=== PATIENT | female | born 1955 | race Caucasian/White ===

== ENCOUNTER → 2016-09-21 | Outpatient (CLI) | payer BC ==
[~2016-09-21] MED LIST: PRVHFAIN INH
--- NOTE | 2016-09-21 16:28 | DIAGNOSTIC IMAGING REPORT ---
ULTRASOUND LEFT LOWER EXTREMITY VENOUS CLINICAL HISTORY: Left leg pain and swelling. COMPARISON STUDY: No priors. TECHNIQUE: Real-time, grayscale, and color Doppler sonography of the deep veins of the left lower extremity was performed from the inguinal crease to the calf. Compression and augmentation were utilized. FINDINGS: There is no sonographic evidence of deep venous thrombosis identified in the left lower extremity. The common femoral, superficial femoral, and popliteal veins are patent and normally compressible. The greater saphenous vein and the profunda femoris vein at the junction with the common femoral vein are clear. The visualized calf veins are patent. IMPRESSION: There is no sonographic evidence of deep venous thrombosis identified in the left lower extremity. Electronically signed by: Shar Stanley M.D. 09/21/2016 4:26 PM Dictated Date/Time: 09/21/2016 4:26 PM
== END | disposition home or self-care (01) ==
LOC: C.ULTR 15:57
PROVIDERS: ATTEND Nurse Practitioner
DX: R60.9 Edema, unspecified (principal); M79.662 Pain in left lower leg

== ENCOUNTER → 2016-12-28 | Outpatient (CLI) | payer BC ==
--- NOTE | 2016-12-28 18:04 | DIAGNOSTIC IMAGING REPORT ---
SACRUM COCCYX MIN 2 VIEWS CLINICAL HISTORY: FALL THIS AM COMPARISON STUDY: CT of the abdomen and pelvis January 19, 2016. FINDINGS: The sacroiliac joints are intact. There is a transitional vertebra at the lumbosacral junction. No acute fracture of the sacrum or coccyx is identified on this exam. IMPRESSION: No acute sacral or coccygeal fracture identified. Electronically signed by: Rudolph Newton M.D. 12/28/2016 6:02 PM Dictated Date/Time: 12/28/2016 6:01 PM
== END | disposition home or self-care (01) ==
LOC: C.RAD 17:04
PROVIDERS: ATTEND Chiropractor
DX: M53.3 Sacrococcygeal disorders, not elsewhere classified (principal)

== ENCOUNTER 2019-06-12 08:04 | Observation (INO) ==
[2019-06-12] MEDS ORDERED: SODIUM CHLORIDE 0.9% 1000ML 1,000 ML IV ONE (08:24)
[2019-06-12] MEDS ORDERED: ONDANSETRON INJ 2 MG/ML 2 ML VIAL IV STA (08:24)
[2019-06-12] MEDS ORDERED: MoRPHine SULFATE 4 MG/ML 1 ML CARP\\VIAL IV STA (08:24)
[2019-06-12 08:45] LABS: Basophils # (auto) 0.03 K/uL (0-0.2); Basophils % (auto) 0.6 %; Eosinophils # (auto) 0.14 K/uL (0-0.5); Hematocrit (blood only) 37.2 % (37-47); Hemoglobin 12.1 g/dL (12.0-16.0); Immature Granulocytes # (auto) 0.01 K/uL (0.00-0.02); Immature Granulocytes % (auto) 0.2 %; Lymphocytes # (auto) 1.05 K/uL (1.2-3.4); Lymphocytes % (auto) 22.7 %; Mean Corpuscular Hemoglobin 31.9 pg (25-34); Mean Corpuscular Hgb Conc 32.5 g/dL (32-36); Mean Corpuscular Volume 98.2 fL (80-100); Mean Platelet Volume 8.7 fL (7.4-10.4); Monocytes # (auto) 0.39 K/uL (0.11-0.59); Monocytes % (auto) 8.4 %; Neutrophils % (auto) 65.1 %; Platelet Count 282 K/uL (130-400); RDW Coefficient of Variation 12.6 % (11.5-14.5); RDW Standard Deviation 44.8 fL (36.4-46.3); Red Blood Count 3.79 M/uL (4.2-5.4); White Blood Count 4.62 K/uL (4.8-10.8)
--- NOTE | 2019-06-12 08:59 | XRay Report ---
XR chest 1V portable CLINICAL HISTORY: 64 years-old Female presenting with chest pain. TECHNIQUE: Portable upright AP view of the chest was obtained. COMPARISON: 04/07/2018. FINDINGS: Atherosclerosis of the aortic arch. Cardiac silhouette enlarged. Mild cephalization of vasculature. M inimal left basilar opacity. No large effusion or pneumothorax. Osseous structures normal. Upper abdo men normal. IMPRESSION: 1. Minimal left basilar atelectasis may be present. 2. Cardiomegaly with mild volume overload. No advanced congestive change. ACT 112: Negative or not required by law. Electronically signed by: Yonis Lopez M.D. 06/12/2019 8:58 AM
[2019-06-12 09:03] LABS: Alanine Aminotransferase 18 U/L (12-78); Albumin Level 3.4 gm/dl (3.4-5.0); Aspartate Aminotransferase 13 U/L (15-37); BUN Creatinine Ratio 15.5 (10-20); Blood Urea Nitrogen 14 mg/dl (7-18); Calcium 9.1 mg/dl (8.5-10.1); Carbon Dioxide 28 mmol/L (21-32); Chloride 107 mmol/L (98-107); Est GFR (African American) 79.4; Est GFR (Non-African American) 68.5; Glucose 94 mg/dl (70-99); Lipase 94 U/L (73-393); Magnesium 2.1 mg/dl (1.8-2.4); Potassium 3.7 mmol/L (3.5-5.1); Sodium 141 mmol/L (136-145)
[2019-06-12 09:05] LABS: iSTAT Creatinine 0.8 mg/dl (0.6-1.3); iSTAT Hemoglobin 11.2 g/dl (12.0-16.0); iSTAT Ionized Calcium 1.18 mmol/l (1.12-1.32); iSTAT Potassium 3.6 mEq/L (3.3-5.0)
[2019-06-12 09:08] LABS: Alkaline Phosphatase 107 U/L (45-117); Bilirubin,Total 1.4 mg/dl (0.2-1); Globulin 3.4 gm/dl (2.5-4.0); Total Protein 6.8 gm/dl (6.4-8.2); Troponin I < 0.015 ng/ml (0-0.045)
[2019-06-12 09:14] LABS: D Dimer 260 ug/L FEU (0-500); Partial Thromboplastin Ratio 1.1; Partial Thromboplastin Time 28.7 Seconds (21.0-31.0); Prothrombin Time 10.2 Seconds (9.0-12.0)
--- NOTE | 2019-06-12 09:55 | Emergency Department Note ---
History of Present Illness General Chief Complaint: Cardiac Assessment Stated Complaint: SEVERE CHEST PAIN HX HEART PROBLEMS Time Seen by Provider: 06/12/19 08:14 Source: patient Mode of arrival: ambulatory Limitations: no limitations History of Present Illness Provider Complaint: chest pain Onset (ago): day(s) 1 Duration: intermittent and progressively worsening Onset: awoke with symptoms Pain Location: substernal and epigastric Pain Radiation: back and abdomen Severity: severe Maximum Pain Intensity: 8 Current Pain Intensity: 8 Quality: + tightness and + aching Relieved By: + nothing Exacerbated By: + exertion, + inspiration, + supine, + palpation and + movement Context: + trauma/injury (fall 5 weeks ago); no history of DVT/PE Associated symptoms: + nausea and + dyspnea Treatments prior to arrival: none This 64-year-old female patient presents emergency department today, ambulatory, accompanied by a friend. The patient is complaining of chest pain under her breasts radiating from the right to the left, down into the abdomen, and to the low back which she describes as a tightness which began this morning upon awakening. She does states she has had intermittent pain similar nature for the past 1 to 2 days. She wears a CPAP overnight, and states when she awoke this morning, she noticed the pain. She does report some dyspnea associated with the pain. She reports similar pain in the past requiring hospitalization but without a diagnosis. She denies any history of heart disease, [place], or need for cardiac cath. The patient denies any recent illness or fever. She denies any cough or hemoptysis. There has been no recent travel. She did fall approximately 5 weeks ago and states she had a chest x-ray done at that time which was negative. The patient has taken no medications for her symptoms. She did drink some tea this morning, but did not eat breakfast. She states movement and palpation worsen the pain. There was no diaphoresis. The patient does report a family history of heart disease in her father, but is uncertain of any specifics. 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 She otherwise denies any chronic medical problems. Related Data On Oral Contraceptives: No Home Medications Home Medications Medication Instructions Recorded Confirmed Type ascorbic acid (vitamin C) [Vitamin 250 mg PO QAM 05/25/19 06/12/19 History C] furosemide [Lasix] 20 mg PO QAM PRN 12/21/19 01/08/20 History goldenseal 325 mg PO BID PRN 05/25/19 06/12/19 History Allergies Allergy/AdvReac Type Severity Reaction Status Date / Time No Known Allergies Allergy Unverified 06/12/19 08:35 Past Med/Surg History Medical History Bradycardia (Acute) H/O unilateral nephrectomy Family History Other No pertinent family history in first degree relatives Social History Preferred Language: Chadian Communication Ability: Effective Academic Support Coordinator Required: No Beliefs That Will Affect Care: None Current Living Situation: Alone Feels Safe at Home: Yes Smoking Status: Never smoker Second Hand Exposure: No ; Hx Alcohol Use: No Hx Substance Use: No Review of Systems A total of 10 systems reviewed and were otherwise negative Physical Exam Vital Signs Vital Signs - 24 hr 06/12/19 08:09 06/12/19 08:18 06/12/19 09:04 Temperature 36.5 C Temperature Source Oral Pulse Rate 66 Pulse Rate [Apical] 64 Respiratory Rate 20 16 Respiratory Effort / Characteristics Non-Labored Respiratory Depth Normal Blood Pressure 148/80 H Blood Pressure [Left Arm] 121/66 Blood Pressure Mean 102 Blood Pressure Mean [Left Arm] 84 Pulse Oximetry 100 100 Oxygen Delivery Method Room Air Room Air Room Air Sepsis Recent Fever Within 48 Hours No Sepsis New/Unexplained Change in Mental Status No Sepsis Action Taken by Nursing No Action Required 06/12/19 09:22 06/12/19 10:40 Temperature Temperature Source Pulse Rate Pulse Rate [Apical] 63 Respiratory Rate 16 Respiratory Effort / Characteristics Respiratory Depth Blood Pressure Blood Pressure [Left Arm] 141/63 H Blood Pressure Mean Blood Pressure Mean [Left Arm] 89 Pulse Oximetry 100 100 Oxygen Delivery Method Room Air Room Air Sepsis Recent Fever Within 48 Hours Sepsis New/Unexplained Change in Mental Status Sepsis Action Taken by Nursing VITALS: Vitals are noted on the nurse's note and reviewed by myself. Vital signs stable. GENERAL: This is a 64-year-old white female, in no acute distress, nondiaphoretic, well-developed well-nourished. SKIN: The skin was without rashes, erythema, edema, or bruising. There is no tenting of the skin. Capillary refill less than 2 seconds. HEAD: Normocephalic atraumatic. EARS: External auditory canals clear, tympanic membranes pearly onofre without erythema or effusion bilaterally. EYES: Pupils equal round and reactive to light and accommodation. Conjunctivae without injection, sclerae without icterus. NOSE: Patent, turbinates without inflammation or discharge. No sinus tenderness. MOUTH: Mucous membranes moist. Tonsils are not enlarged. Pharynx without erythema or exudate. Uvula midline. Airway patent. Tongue does not deviate. NECK: Supple without nuchal rigidity. No lymphadenopathy. No thyromegaly. Cervical spine is nontender. No JVD. CHEST: Significant reproducible chest wall tenderness anteriorly. This is diffusely across the chest wall. This does radiate to the epigastrium. HEART: Regular rate and rhythm without murmurs gallops or rubs. LUNGS: Clear to auscultation bilaterally without wheezes, rales or rhonchi. No retractions or accessory muscle use. ABDOMEN: Positive bowel sounds x 4. Normal tympanic percussion. Epigastric and right upper quadrant tenderness to palpation. Abdomen is otherwise soft, nontender, without masses or organomegaly. Lai sign negative. No guarding or rebound tenderness. MUSCULOSKELETAL: No muscle atrophy, erythema, or edema noted. Full range of motion without joint tenderness in all extremities. No tenderness to palpation. Normal gait. Strength 5/5 throughout. NEURO: Patient was alert and oriented to person place and time. No focal neurological deficits. Course The patient was seen and evaluated as above. IV access obtained, labs drawn. Pt. medicated with IV NSS, 4mg IV morphine and 4mg IV Zofran. Imaging performed and reviewed by myself and radiologist as above. Labs reviewed by myself. I discussed the findings with the patient at bedside. I discussed the likely need for a HIDA scan and possible surgery. Recommended admission. Pt. was agreeable. I discussed the case with Dr. Thomas. She did agree to see and evaluate the patient for admission. Please see her dictation regarding ongoing management and care of this patient. Administered Medications Discontinued Medications Sodium Chloride (Nss 1000ml) 1,000 mls @ 999 mls/hr IV .Q1H1M ONE Stop: 06/12/19 09:24 Last Infusion: 06/12/19 09:47 Dose: 0 mls/hr Documented by: [id number] Admin: 06/12/19 08:40 Dose: 999 mls/hr Documented by: [id number] Morphine Sulfate (Morphine Sulfate) 4 mg IV NOW STA Stop: 06/12/19 08:25 Last Admin: 06/12/19 08:39 Dose: 4 mg Documented by: [id number] Ondansetron HCl (Zofran) 4 mg IV NOW STA Stop: 06/12/19 08:25 Last Admin: 06/12/19 08:39 Dose: 4 mg Documented by: [id number] Medical Decision Making Differential Diagnosis + fracture of rib, + pneumothorax, + stable angina, + unstable angina pectoris, + atypical chest pain, + st elevation myocardial infarction, + costochondritis, + chest pain, + biliary colic, + cardiac ischemia, + myocarditis, + pericarditis, + costochondritis, + pleurisy, + aortic dissection, + pulmonary embolism, + pneumonia, + musculoskeletal, + infections, + cholecystitis, + pancreatitis and + esophageal rupture Home Medications Current Medication List: was personally reviewed by me Laboratory Data Attestation: I reviewed the patient's lab results. No leukocytosis, anemia, thrombocytopenia. Renal, hepatic function, and electrolytes without significant abnormality. Coags normal. D-dimer 260. T bili elevated at 1.4. Troponin negative. Lipase 94. Result diagrams: 06/12/19 08:31 06/12/19 08:31 Lab Results 06/12/19 06/12/19 06/12/19 Range/Units 08:31 08:31 08:31 WBC 4.62 L (4.8-10.8) K/uL RBC 3.79 L (4.2-5.4) M/uL Hgb 12.1 (12.0-16.0) g/dL POC Hgb (12.0-16.0) g/dl Hct 37.2 (37-47) % POC Hct (37-47) % MCV 98.2 (80-100) fL MCH 31.9 (25-34) pg MCHC 32.5 (32-36) g/dL RDW Std Deviation 44.8 (36.4-46.3) fL RDW Coeff of Mariusz 12.6 (11.5-14.5) % Plt Count 282 (130-400) K/uL MPV 8.7 (7.4-10.4) fL Immature Gran % (Auto) 0.2 % Neut % (Auto) 65.1 % Lymph % (Auto) 22.7 % [place] % (Auto) 8.4 % Eos % (Auto) 3.0 % Baso % (Auto) 0.6 % Immature Gran # (Auto) 0.01 (0.00-0.02) K/uL Neut # (Auto) 3.00 (1.4-6.5) K/uL Lymph # (Auto) 1.05 L (1.2-3.4) K/uL [place] # (Auto) 0.39 (0.11-0.59) K/uL Eos # (Auto) 0.14 (0-0.5) K/uL Baso # (Auto) 0.03 (0-0.2) K/uL PT 10.2 (9.0-12.0) Seconds INR 1.0 (0.9-1.1) APTT 28.7 (21.0-31.0) Seconds PTT Ratio 1.1 D-Dimer 260 (0-500) ug/L FEU POC Sodium (135-144) mEq/L Sodium 141 (136-145) mmol/L POC Potassium (3.3-5.0) mEq/L Potassium 3.7 (3.5-5.1) mmol/L POC Chloride (101-112) mEq/L Chloride 107 (98-107) mmol/L Carbon Dioxide 28 (21-32) mmol/L POC Total CO2 (24-31) mEq/l Anion Gap 6.0 (3-11) POC Anion Gap (16-25) mmol/L POC BUN (7-18) mg/dl BUN 14 (7-18) mg/dl Creatinine 0.89 (0.6-1.2) mg/dl POC Creatinine (0.6-1.3) mg/dl Est Cr Clr Drug Dosing Not Reportable Est GFR ( Amer) 79.4 Est GFR (Non-Af Amer) 68.5 BUN/Creatinine Ratio 15.5 (10-20) Glucose 94 (70-99) mg/dl POC Glucose (other) (70-99) mg/dl Calcium 9.1 (8.5-10.1) mg/dl POC Ioniz Calcium Venkata (1.12-1.32) mmol/l Magnesium 2.1 (1.8-2.4) mg/dl Total Bilirubin 1.4 H (0.2-1) mg/dl AST 13 L (15-37) U/L ALT 18 (12-78) U/L Alkaline Phosphatase 107 (45-117) U/L Troponin I < 0.015 (0-0.045) ng/ml Total Protein 6.8 (6.4-8.2) gm/dl Albumin 3.4 (3.4-5.0) gm/dl Globulin 3.4 (2.5-4.0) gm/dl Albumin/Globulin Ratio 1.0 (0.9-2) Lipase 94 (73-393) U/L 06/12/19 Range/Units 08:52 WBC (4.8-10.8) K/uL RBC (4.2-5.4) M/uL Hgb (12.0-16.0) g/dL POC Hgb 11.2 L (12.0-16.0) g/dl Hct (37-47) % POC Hct 33 L (37-47) % MCV (80-100) fL MCH (25-34) pg MCHC (32-36) g/dL RDW Std Deviation (36.4-46.3) fL RDW Coeff of Mariusz (11.5-14.5) % Plt Count (130-400) K/uL MPV (7.4-10.4) fL Immature Gran % (Auto) % Neut % (Auto) % Lymph % (Auto) % [place] % (Auto) % Eos % (Auto) % Baso % (Auto) % Immature Gran # (Auto) (0.00-0.02) K/uL Neut # (Auto) (1.4-6.5) K/uL Lymph # (Auto) (1.2-3.4) K/uL [place] # (Auto) (0.11-0.59) K/uL Eos # (Auto) (0-0.5) K/uL Baso # (Auto) (0-0.2) K/uL PT (9.0-12.0) Seconds INR (0.9-1.1) APTT (21.0-31.0) Seconds PTT Ratio D-Dimer (0-500) ug/L FEU POC Sodium 140 (135-144) mEq/L Sodium (136-145) mmol/L POC Potassium 3.6 (3.3-5.0) mEq/L Potassium (3.5-5.1) mmol/L POC Chloride 103 (101-112) mEq/L Chloride (98-107) mmol/L Carbon Dioxide (21-32) mmol/L POC Total CO2 26 (24-31) mEq/l Anion Gap (3-11) POC Anion Gap 15.0 L (16-25) mmol/L POC BUN 14 (7-18) mg/dl BUN (7-18) mg/dl Creatinine (0.6-1.2) mg/dl POC Creatinine 0.8 (0.6-1.3) mg/dl Est Cr Clr Drug Dosing Est GFR ( Amer) Est GFR (Non-Af Amer) BUN/Creatinine Ratio (10-20) Glucose (70-99) mg/dl POC Glucose (other) 97 (70-99) mg/dl Calcium (8.5-10.1) mg/dl POC Ioniz Calcium Venkata 1.18 (1.12-1.32) mmol/l Magnesium (1.8-2.4) mg/dl Total Bilirubin (0.2-1) mg/dl AST (15-37) U/L ALT (12-78) U/L Alkaline Phosphatase (45-117) U/L Troponin I (0-0.045) ng/ml Total Protein (6.4-8.2) gm/dl Albumin (3.4-5.0) gm/dl Globulin (2.5-4.0) gm/dl Albumin/Globulin Ratio (0.9-2) Lipase (73-393) U/L Imaging Data Chest x-ray: Radiologist's impression: XR chest 1V portable CLINICAL HISTORY: 64 years-old Female presenting with chest pain. TECHNIQUE: Portable upright AP view of the chest was obtained. COMPARISON: 04/07/2018. FINDINGS: Atherosclerosis of the aortic arch. Cardiac silhouette enlarged. Mild cep halization of vasculature. Minimal left basilar opacity. No large effusion or pneumothorax. Osseous structures normal. Upper abdomen normal. IMPRESSION: 1. Minimal left basilar atelectasis may be present. 2. Cardiomegaly with mild volume overload. No advanced congestive change. ACT 112: Negative or not required by law. Electronically signed by: Yonis Lopez M.D. 06/12/2019 8:58 AM US - abdomen: Radiologist's impression: US abdomen limited CLINICAL HISTORY: 64 years-old Female presenting with RUQ, epigastric pain. TECHNIQUE: Real-time grayscale and limited color Doppler ultrasound imaging of the abdomen limited to the right upper quadrant was performed. COMPARISON: 10/23/[address] from 01/19/2016. FINDINGS: Pancreas: Visualized portions of the pancreatic head and body normal. Liver: Normal echogenicity and echotexture. The liver measures 15.0 cm in maximal sagittal dimension. No sonographic evidence of hepatic mass. Main portal vein patent with normal directional flow. Biliary: No intrahepatic biliary ductal dilatation. Common bile duct measures up to 3 mm in diameter. Gallbladder: Gallstones with mild gallbladder distention. No significant wall thickening, or pericholecystic fluid or inflammatory change. Sonographic Lai's sign positive. Right kidney: Mild pelvocaliectasis. This is chronic and consistent with a flaccid renal collecting system. Ascites: None. Other: None. IMPRESSION: 1. Cholelithiasis with findings raising concern for cholecystitis. HIDA is recommended for further characterization if deemed clinically warranted. 2. No biliary ductal dilatation to suggest choledocholithiasis. ACT 112: Negative or not required by law. Electronically signed by: Yonis Lopez M.D. 06/12/2019 9:52 AM ECG Data Attestation: I personally reviewed and interpreted this ECG as follows: Indication: chest pain Rate (beats per minute): 70 Rhythm: normal sinus Findings: no ST depression, no T-wave inversion, no ST elevation, no acute ischemic change and no ectopy Comparison ECG Date: from (04/2018) Change: no significant change Blood Pressure Blood Pressure Findings: Elevated blood pressure Blood Pressure Disposition: elevated BP felt to be situational MDM Narrative This 64-year-old female patient presents emergency department today, ambulatory, due to severe epigastric and chest pain which began this morning, but has been intermittent for the past few days. The patient is very tender in the epigastrium and right upper quadrant. No evidence of acute coronary syndrome on EKG or laboratory evaluation. The patient's labs show a mildly elevated T bili, but no significant LFT abnormalities or leukocytosis. Imaging was concerning for cholelithiasis with possible cholecystitis. Radiologist recommended a HIDA scan. The patient will be admitted to the hospitalist service for further evaluation and possible surgical evaluation for cholecystectomy. Please see hospitalist dictation regarding ongoing management care of this patient. The chart was completed utilizing [employer] Speech voice recognition software. Grammatical errors, random word insertions, pronoun errors, and incomplete sentences are an occasional consequence of this system due to software limitations, ambient noise, and hardware issues. Any formal questions or concer ns about the content, text, or information contained within the body of this dictation should be directly addressed to the provider for clarification. Impression & Plan Atypical chest pain, Biliary colic, Cholelithiasis Discharge Plan Visit Data *Final* Discharge Date/Time: 06/12/19 13:21 Chief Complaint: Cardiac Assessment Stated Complaint: SEVERE CHEST PAIN HX HEART PROBLEMS ED Provider: Gamal Mcguire ED Midlevel Provider: Yomaira Logan Discharge Problem: Atypical chest pain, Biliary colic, Cholelithiasis Patient Disposition: Admitted As Inpatient Discharge Instructions Interventions: ED Discharge Assessment Last Done: 06/12/19 13:21
--- NOTE | 2019-06-12 10:19 | Electrocardiogram Report ---
Test Reason : Blood Pressure : / mmHG Vent. Rate : 070 BPM Atrial Rate : 070 BPM P-R Int : 176 ms QRS Dur : 092 ms QT Int : 400 ms P-R-T Axes : 057 -06 027 degrees QTc Int : 432 ms Normal sinus rhythm Low voltage QRS Poor R wave progression, consider anterior DC vs. lead placement vs. LVH Abnormal ECG When compared with ECG of 07-APR-2018 12:13, No significant change was found Confirmed by Jayson Mac ([id number]) on 06/12/2019 10:19:30 AM Referred By: REFERRED SELF Confirmed By:Jayson Mac
--- NOTE | 2019-06-12 11:03 | History & Physical Report ---
Date of Service June 12, 2019 Assessment & Plan (1) Biliary colic: Admit to [facility] on telemetry for observation Vital signs every 4 hours HIDA scan pending N.p.o. for HIDA scan Hold all pain medication before HIDA scan Consider consulting general surgery or GI depending on HIDA scan result Follow-up CMP liver enzymes and lipase DVT prophylaxis SCDs and teds, patient is ambulatory. Ambulation 3 times a day Full code (2) Atypical chest pain: Patient complaining of epigastric pain radiating to her left and right chest First troponin is negative EKG normal sinus rhythm We will continue ruling out acute coronary syndrome with repeating 2 more troponins Present on Admission?: Yes (3) H/O unilateral nephrectomy: Patient had left unilateral nephrectomy when she was a 6 grader due to sliding accident and injury. No issues at this time. Present on Admission?: Yes (4) History of kidney stones: Patient reports having kidney stones in the past. Urine analysis is pending. Present on Admission?: Yes History of Present Illness Chief Complaint: Patient is a 64 years old female with past medical history of unilateral left nephrectomy that was a result of sliding injury when she was a 6 grade, history of kidney stones and otherwise healthy, who presents to the emergency room brought by her friend complaining of a atypical chest pain located in the epigastric area and radiating to her left and right upper abdomen, which she describes as a tightness that started this morning upon awakening. Patient states that she had intermittent pain 2 days ago. Patient wears CPAP overnight for sleep apnea. Patient denies fever, chills, shortness of breath frequency urgency syncope or near syncope. Labs are reviewed which shows: WBC is 4.62, hemoglobin 12.1, hematocrit 37.2, platelets 282, PT 10.2, INR 1, APTT 28.7 d-dimer is 260, sodium 141, potassium 3.7, chloride 107, anion gap 6, BUN 14, creatinine 0.89, GFR 68.5, calcium 9.1, magnesium 2.1, total bili 1.4, AST 13, ALT 18, alkaline phosphatase 107, troponin 0 0.015, lipase 94. Chest x-ray shows minimal left basilar atelectasis, cardiomegaly with mild volume overload. No advanced congestive changes. Abdominal ultrasound shows cholelithiasis with findings raising concerns of cholecystitis. HIDA is recommended for further characterization. No biliary ductal dilatation to suggest cholelithiasis. Decision was made to admit patient to telemetry on observation. Primary Care Provider: Rea Rain DO Allergies Allergy/AdvReac Type Severity Reaction Status Date / Time No Known Allergies Allergy Unverified 06/12/19 08:35 Home Medications Home Medications Medication Instructions Recorded Confirmed Type ascorbic acid (vitamin C) [Vitamin 250 mg PO QAM 05/25/19 06/12/19 History C] furosemide [Lasix] 20 mg PO QAM PRN 05/25/19 06/12/19 History goldenseal 325 mg PO BID PRN 05/25/19 06/12/19 History Past Med/Surg History Medical History Bradycardia (Acute) H/O unilateral nephrectomy Family History Other No pertinent family history in first degree relatives Social History Preferred Language: Setswana Communication Ability: Effective 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 Beliefs That Will Affect Care: None Current Living Situation: Alone Other Information That Helps Us Care for You: No Feels Safe at Home: Yes Safety Concerns: Feels Safe At This Time Smoking Status: Never smoker Do You Dip or Chew Tobacco: No ; Second Hand Exposure: No ; Tobacco Cessation Education Requested by Patient: No Hx Alcohol Use: No Hx Substance Use: No Review of Systems Review of Systems: All systems reviewed & are unremarkable except as noted in HPI & below Physical Exam Constitutional: WD/WN, vitals as above well developed Eyes: PERRL, conjunctivae normal, anicteric sclerae ENMT: external ear and nose normal, oropharynx normal Neck: trachea midline, no thyromegaly Respiratory: normal respiratory effort, lungs clear to auscultation Cardiovascular: RRR, no murmur, no edema Gastrointestinal (Abdomen): Epigastric and right upper quadrant tenderness Musculoskeletal: no cyanosis or clubbing, extremities motor strength 5/5 Skin: no rashes, warm and dry Neurologic: patellar DTR's 2+ bilat, sensation intact Psychiatric: A+Ox3, euthymic affect Lymphatic: no cervical or axillary lymphadenopathy Results & Data Vital Signs (Past 12 Hours) Vital Signs Temp Pulse Pulse Resp BP BP Pulse Ox 06/12/19 10:40 63 16 141/63 H 100 06/12/19 09:22 100 06/12/19 09:04 64 16 121/66 100 06/12/19 08:09 36.5 C 66 20 148/80 H 100 Code Status & VTE Plan Code Status Full code VTE Prophylaxis Plan VTE Prophylaxis will be ordered: Yes PG Care Time/CCT Total # of Minutes Spent Total Time Spent with Patient: Total time spent is greater than 50% in coordination of care (as documented) at patient's floor/unit and/or counseling patient:
[2019-06-12] MEDS ORDERED: FUROSEMIDE 20 MG TAB PO PRN (14:14)
[2019-06-12] MEDS ORDERED: MAGNESIUM HYDROXIDE SUSP 30 ML UDC PO PRN (14:14)
[2019-06-12] MEDS ORDERED: ONDANSETRON INJ 2 MG/ML 2 ML VIAL IV PRN (14:14)
[2019-06-12] MEDS ORDERED: GOLDENSEAL PO PRN (14:14)
[2019-06-12] MEDS ORDERED: ALUMINUM/MAGNESIUM SUSP 30 ML UDC PO PRN (14:14)
[2019-06-12] MEDS ORDERED: ACETAMINOPHEN 325 MG TAB PO PRN (14:14)
[2019-06-12 14:53] LABS: Estimated Average Glucose 105 mg/dl; Hemoglobin A1C 5.3 % (4.5-5.6)
[2019-06-12] MEDS: NSS + 20MEQ KCL 20 MEQ/1,000 ML BAG IV SCH (15:55)
[2019-06-13] MEDS: NSS + 20MEQ KCL 20 MEQ/1,000 ML BAG IV SCH ×2 (01:25→13:55)
[2019-06-13 07:47] LABS: Basophils # (auto) 0.01 K/uL (0-0.2); Basophils % (auto) 0.2 %; Eosinophils # (auto) 0.12 K/uL (0-0.5); Eosinophils % (auto) 2.6 %; Hematocrit (blood only) 35.3 % (37-47); Hemoglobin 11.4 g/dL (12.0-16.0); Immature Granulocytes # (auto) 0.01 K/uL (0.00-0.02); Immature Granulocytes % (auto) 0.2 %; Lymphocytes # (auto) 1.23 K/uL (1.2-3.4); Lymphocytes % (auto) 26.3 %; Mean Corpuscular Hgb Conc 32.3 g/dL (32-36); Mean Corpuscular Volume 99.2 fL (80-100); Mean Platelet Volume 8.8 fL (7.4-10.4); Monocytes # (auto) 0.36 K/uL (0.11-0.59); Monocytes % (auto) 7.7 %; Neutrophils # (auto) 2.94 K/uL (1.4-6.5); Platelet Count 282 K/uL (130-400); RDW Coefficient of Variation 12.6 % (11.5-14.5); RDW Standard Deviation 45.9 fL (36.4-46.3); Red Blood Count 3.56 M/uL (4.2-5.4); White Blood Count 4.67 K/uL (4.8-10.8)
[2019-06-13 08:18] LABS: Albumin Level 3.1 gm/dl (3.4-5.0); BUN Creatinine Ratio 12.8 (10-20); Calcium 8.7 mg/dl (8.5-10.1); Creatinine Clr Calc Pharmacy 73.7 ml/min; Est GFR (African American) 82.7; Est GFR (Non-African American) 71.4; Potassium 3.9 mmol/L (3.5-5.1)
[2019-06-13 08:25] LABS: Bilirubin,Total 1.9 mg/dl (0.2-1); Globulin 3.1 gm/dl (2.5-4.0); Total Protein 6.2 gm/dl (6.4-8.2)
[2019-06-13] MEDS ORDERED: SINCALIDE 1.8 MCG in 0.9 % SODIUM CHLORIDE 100 ML IV SCH (09:00)
[2019-06-13] MEDS ORDERED: ASCORBIC ACID 500 MG TAB PO SCH (09:00)
--- NOTE | 2019-06-13 10:19 | Nuclear Medicine Report ---
NM hepatobiliary EF CLINICAL HISTORY: acute cholecystitis COMPARISON STUDY: Ultrasound study dated 06/12/2015 FINDINGS: The patient was injected with 5.3 mCi of technetium 99 M Choletec. Sequential anterior imag ing was performed. Hepatic excretion appeared unremarkable. There is normal passage of activity into small bowel. The gallbladder was first visualized on the 10 minute image. At 1 hour, the patient was injected with 3.8 mcg of sincalide utilizing a 30 minute infusion. The gallbladder ejection fraction was diminished calculated to measure 12%. IMPRESSION: 1. No evidence of cystic duct obstruction 2. Diminished gallbladder ejection fraction of 12% ACT 112: Negative or not required by law. Electronically signed by: Gareth Alvarado M.D. 06/13/2019 10:17 AM
[2019-06-13] MEDS ORDERED: LIDOCAINE 5% 1 PATCH TD SCH (12:00)
[2019-06-13] MEDS ORDERED: ACETAMINOPHEN SOLN 500 MG/15.62 ML UDP PO SCH (12:00)
--- NOTE | 2019-06-13 13:26 | Gastrointestinal Consultation ---
Date of Consultation June 13, 2019 Assessment & Plan (1) Cholelithiasis: (2) Biliary colic: symptomatic with cholelithiasis, EF reduced on HIDA scan recs: --would benefit from CCY (biliary colic with cholelithiasis), defer to surgery at this time --supportive care, pain control prn --no evidence of CBD obstruction/choledocholithiasis, ERCP not indicated rest as per primary team Thank you for allowing me to participate in the care of this patient History of Present Illness Attending Physician: Nahid Fernando MD 64 yo female with hx nephrectomy here with epigastric and right upper quadrant pains, described as a tightness that comes and goes for the last few months, associated with nausea, 10/10. GI consulted for biliary colic. LFTs show tbili 1.9, normal ALP. US showed positive murphys and with normal CBD and cholelithiasis was present, HIDA scan showed reduced EF 12%. She denies any diarrhea, constipation, fevers, chills, any other symptoms. lipase wnl. Labs as above. Allergies Allergy/AdvReac Type Severity Reaction Status Date / Time No Known Allergies Allergy Unverified 06/12/19 08:35 Home Medications Home Medications Medication Instructions Recorded Confirmed Type ascorbic acid (vitamin C) [Vitamin 250 mg PO QAM 05/25/19 06/12/19 History C] furosemide [Lasix] 20 mg PO QAM PRN 05/25/19 06/12/19 History goldenseal 325 mg PO BID PRN 05/25/19 06/12/19 History Patient History Medical History Bradycardia (Acute) H/O unilateral nephrectomy Family History Other No pertinent family history in first degree relatives Social History Preferred Language: Syrian Communication Ability: Effective Prosthetics Lab Technician Required: No Beliefs That Will Affect Care: None Current Living Situation: Alone Feels Safe at Home: Yes Smoking Status: Never smoker Second Hand Exposure: No ; Hx Alcohol Use: No Hx Substance Use: No Review of Systems Constitutional: no fever, no chills and no weight loss Eyes: as per Subjective / HPI Ear, Nose, Mouth, Throat: as per Subjective / HPI Respiratory: no dyspnea and no dyspnea on exertion Cardiovascular: no chest pain and no palpitations Gastrointestinal: as per Subjective / HPI Musculoskeletal: no joint pain and no swelling Integumentary: no rash and no lesions Neurologic: no numbness and no paresthesia Psychiatric: no depression and no anxiety Endocrine: no fatigue Hematologic / Lymphatic: no easy bleeding and no easy bruising Physical Exam Constitutional: WD/WN, vitals as above Eyes: EOM intact bilaterally Neck: normal visual inspection Respiratory: normal respiratory effort, lungs clear to auscultation Cardiovascular: RRR, no murmur, no edema Gastrointestinal (Abdomen): Inspection/Auscultation: abdomen normal to inspection; abdomen not distended Percussion/Palpation: abdomen soft; abdomen nontender and no hepatosplenomegaly Musculoskeletal: Extremities: no cyanosis Gait: normal gait Skin: no rashes, warm and dry Neurologic: moves all extremities Psychiatric: A+Ox3, euthymic affect Results & Data Vital Signs (Past 12 Hours) Vital Signs Temp Pulse Pulse Pulse Resp BP BP 06/13/19 11:23 36.7 C 57 L 19 127/81 06/13/19 07:31 36.8 C 57 L 57 L 18 127/60 06/13/19 07:20 72 06/13/19 04:09 36.6 C 67 18 111/62 Pulse Ox 06/13/19 11:23 100 06/13/19 07:31 99 06/13/19 07:20 06/13/19 04:09 93 PG Care Time/CCT Total # of Minutes Spent Total Time Spent with Patient: Total time spent is greater than 50% in coordination of care (as documented) at patient's floor/unit and/or counseling patient: (1) Cholelithiasis Biliary obstruction: without biliary obstruction Cholecystitis acuity: acute Cholecystitis presence: with cholecystitis Cholelithiasis location: gallbladder Qualified Code(s): K80.00 - Calculus of gallbladder with acute cholecystitis without obstruction
[2019-06-13] MEDS ORDERED: ACETAMINOPHEN SOLN 160 MG/5 ML BTL PO SCH (14:30)
--- NOTE | 2019-06-13 15:01 | Surgery Consultation ---
Date of Consultation June 13, 2019 Assessment & Plan (1) Atypical chest pain: This patient has costochondritis with palpation of which leads to recreation of her symptoms. There is cholelithiasis present but it is unlikely that that is what is causing these particular symptoms especially considering there is no wall thickening or pericholecystic fluid by ultrasound and there was prompt filling of the gallbladder on hepatobiliary scan. Musculoskeletal/costochondritis is also supported by the fact that chiropractic manipulation relieves the symptoms prior to this episode. Treating the costochondritis may be somewhat difficult as a result of her inability to take NSAIDs as a result of having only 1 kidney. [place] cystectomy can be discussed as an outpatient and may at some point be necessary but I do not think that performing cholecystectomy at this time will relieve her costochondritis symptoms. History of Present Illness Reason for Consultation: Pain in the sternum region Requesting Physician: Nahid Fernando MD Attending Physician: Nahid Fernando MD History of Present Illness I been asked by Dr. Fernando to see this 64-year-old female who presented to the emergency room with escalating pain. The patient states that for about the last 2 years she has been experiencing discomfort in the sternum region. It always begins there. If the pain escalates it can radiate down along the lower chest wall towards the right side and then into her lower back. This is not associated with nausea or vomiting. She has no fever with it. She cannot predict its onset. She does not think it is related to meals. The most recent episode lasted longer than it had before and was more severe. The patient states that in the past when she would have the pain occur she would go to her chiropractor and he would do an adjustment and the pain would resolve almost immediately. She is never had a history of jaundice hepatitis or pancreatitis. She was unaware that she had gallstones. She underwent a HIDA scan that demonstrated prompt filling of the gallbladder. Allergies Allergy/AdvReac Type Severity Reaction Status Date / Time No Known Allergies Allergy Unverified 06/12/19 08:35 Home Medications Home Medications Medication Instructions Recorded Confirmed Type ascorbic acid (vitamin C) [Vitamin 250 mg PO QAM 05/25/19 06/12/19 History C] furosemide [Lasix] 20 mg PO QAM PRN 05/25/19 06/12/19 History goldenseal 325 mg PO BID PRN 05/25/19 06/12/19 History Patient History Medical History Bradycardia (Acute) Surgical History (Updated 06/13/19 @ 14:59 by David Shane MD) H/O unilateral nephrectomy Left Secondary to trauma Family History Other No pertinent family history in first degree relatives Social History Preferred Language: Japanese Communication Ability: Effective Call Center Professional Required: No Beliefs That Will Affect Care: None Current Living Situation: Alone Feels Safe at Home: Yes Smoking Status: Never smoker Second Hand Exposure: No ; Hx Alcohol Use: No Hx Substance Use: No Physical Exam Constitutional: no acute distress Neck: trachea midline Respiratory: no respiratory distress and no labored breathing Auscultation: + rhonchi (Scattered throughout) Cardiovascular: Rate/Rhythm: regular rate and regular rhythm Chest (Breasts): Additional Comments: Exquisite tenderness along the costal margin and along the costosternal junction extending up towards the left and right sides that re-create her symptoms Results & Data Vital Signs (Past 12 Hours) Vital Signs Temp Pulse Pulse Pulse Resp BP BP 06/13/19 11:23 36.7 C 57 L 19 127/81 06/13/19 07:31 36.8 C 57 L 57 L 18 127/60 06/13/19 07:20 72 06/13/19 04:09 36.6 C 67 18 111/62 Pulse Ox 06/13/19 11:23 100 06/13/19 07:31 99 06/13/19 07:20 06/13/19 04:09 93 Laboratory Results 06/13/19 06/13/19 06/12/19 Range/Units 07:36 07:36 08:41 WBC 4.67 L (4.8-10.8) K/uL RBC 3.56 L (4.2-5.4) M/uL Hgb 11.4 L (12.0-16.0) g/dL Hct 35.3 L (37-47) % MCV 99.2 (80-100) fL MCH 32.0 (25-34) pg MCHC 32.3 (32-36) g/dL RDW Std Deviation 45.9 (36.4-46.3) fL RDW Coeff of Mariusz 12.6 (11.5-14.5) % Plt Count 282 (130-400) K/uL MPV 8.8 (7.4-10.4) fL Immature Gran % (Auto) 0.2 % Neut % (Auto) 63.0 % Lymph % (Auto) 26.3 % [place] % (Auto) 7.7 % Eos % (Auto) 2.6 % Baso % (Auto) 0.2 % Immature Gran # (Auto) 0.01 (0.00-0.02) K/uL Neut # (Auto) 2.94 (1.4-6.5) K/uL Lymph # (Auto) 1.23 (1.2-3.4) K/uL [place] # (Auto) 0.36 (0.11-0.59) K/uL Eos # (Auto) 0.12 (0-0.5) K/uL Baso # (Auto) 0.01 (0-0.2) K/uL Sodium 142 (136-145) mmol/L Potassium 3.9 (3.5-5.1) mmol/L Chloride 111 H (98-107) mmol/L Carbon Dioxide 27 (21-32) mmol/L Anion Gap 4.0 (3-11) BUN 11 (7-18) mg/dl Creatinine 0.86 (0.6-1.2) mg/dl Est Cr Clr Drug Dosing 73.7 ml/min Est GFR ( Amer) 82.7 Est GFR (Non-Af Amer) 71.4 BUN/Creatinine Ratio 12.8 (10-20) Glucose 90 (70-99) mg/dl Calcium 8.7 (8.5-10.1) mg/dl Total Bilirubin 1.9 H (0.2-1) mg/dl AST 8 L (15-37) U/L ALT 17 (12-78) U/L Alkaline Phosphatase 98 (45-117) U/L Total Protein 6.2 L (6.4-8.2) gm/dl Albumin 3.1 L (3.4-5.0) gm/dl Globulin 3.1 (2.5-4.0) gm/dl Albumin/Globulin Ratio 1.0 (0.9-2) Triglycerides 42 (0-150) mg/dl Cholesterol 175 (0-200) mg/dl LDL Cholesterol, Calc 84 mg/dl VLDL Cholesterol, Calc 8 mg/dl HDL Cholesterol 83 mg/dl Cholesterol/HDL Ratio 2 TSH 3.840 (0.300-4.500) uIu/ml Diagnostic Findings US abdomen limited CLINICAL HISTORY: 64 years-old Female presenting with RUQ, epigastric pain. TECHNIQUE: Real-time grayscale and limited color Doppler ultrasound imaging of the abdomen limited to the right upper quadrant was performed. COMPARISON: 10/23/[address] from 01/19/2016. FINDINGS: Pancreas: Visualized portions of the pancreatic head and body normal. Liver: Normal echogenicity and echotexture. The liver measures 15.0 cm in maximal sagittal dimension. No sonographic evidence of hepatic mass. Main portal vein patent with normal directional flow. Biliary: No intrahepatic biliary ductal dilatation. Common bile duct measures up to 3 mm in diameter. Gallbladder: Gallstones with mild gallbladder distention. No significant wall thickening, or pericholecystic fluid or inflammatory change. Sonographic Lai's sign positive. Right kidney: Mild pelvocaliectasis. This is chronic and consistent with a flaccid renal collecting system. Ascites: None. Other: None. IMPRESSION: 1. Cholelithiasis with findings raising concern for cholecystitis. HIDA is recommended for further characterization if deemed clinically warranted. 2. No biliary ductal dilatation to suggest choledocholithiasis. NM hepatobiliary EF CLINICAL HISTORY: acute cholecystitis COMPARISON STUDY: Ultrasound study dated 06/12/2015 FINDINGS: The patient was injected with 5.3 mCi of technetium 99 M Choletec. Sequential anterior imaging was performed. Hepatic excretion appeared unremarkable. There is normal passage of activity into small bowel. The gallbladder was first visualized on the 10 minute image. At 1 hour, the patient was injected with 3.8 mcg of sincalide utilizing a 30 minute infusion. The gallbladder ejection fraction was diminished calculated to measure 12%. IMPRESSION: 1. No evidence of cystic duct obstruction 2. Diminished gallbladder ejection fraction of 12%
--- NOTE | 2019-06-13 15:16 | Discharge Summary ---
Date of Service June 13, 2019 Admission HPI Per Admitting Provider Chief Complaint: Patient is a 64 years old female with past medical history of unilateral left nephrectomy that was a result of sliding injury when she was a 6 grade, history of kidney stones and otherwise healthy, who presents to the emergency room brought by her friend complaining of a atypical chest pain located in the epigastric area and radiating to her left and right upper abdomen, which she describes as a tightness that started this morning upon awakening. Patient states that she had intermittent pain 2 days ago. Patient wears CPAP overnight for sleep apnea. Patient denies fever, chills, shortness of breath frequency urgency syncope or near syncope. Labs are reviewed which shows: WBC is 4.62, hemoglobin 12.1, hematocrit 37.2, platelets 282, PT 10.2, INR 1, APTT 28.7 d-dimer is 260, sodium 141, potassium 3.7, chloride 107, anion gap 6, BUN 14, creatinine 0.89, GFR 68.5, calcium 9.1, magnesium 2.1, total bili 1.4, AST 13, ALT 18, alkaline phosphatase 107, troponin 0 0.015, lipase 94. Chest x-ray shows minimal left basilar atelectasis, cardiomegaly with mild volume overload. No advanced congestive changes. Abdominal ultrasound shows cholelithiasis with findings raising concerns of cholecystitis. HIDA is recommended for further characterization. No biliary ductal dilatation to suggest cholelithiasis. Decision was made to admit patient to telemetry on observation. Primary Care Provider: Rea Rain DO Principal Diagnosis Musculoskeletal pain/costochondritis Discharge Exam Constitutional WD/WN, vitals as above Respiratory normal respiratory effort, lungs clear to auscultation Cardiovascular RRR, no murmur, no edema Gastrointestinal (Abdomen) Inspection/Auscultation: abdomen normal to inspection and normal bowel sounds; abdomen not distended Percussion/Palpation: abdomen soft; abdomen nontender Musculoskeletal Head/Neck/Chest: normal palpation of chest wall (tender to palpation especially right side ) Skin no rashes, warm and dry Neurologic moves all extremities and awake Psychiatric A+Ox3, euthymic affect Discharge Data Allergies Allergy/AdvReac Type Severity Reaction Status Date / Time No Known Allergies Allergy Unverified 06/12/19 08:35 Consultations 06/12/19 10:30 ED Decision to Admit Stat 06/13/19 00:24 Consult General Surgery Routine 06/13/19 00:26 Consult Gastroenterology Routine Ordered Studies 06/12/19 08:24 US abdomen limited Stat Hospital Course (1) Biliary colic: HIDA scan without signs of cholecystitis, EF 15% Abd US with cholelithiasis, no ductal dilation. Evaluated by general surgery - no need for surgery at this time Bili 1.9, other LFTs wnl, likely incidental finding or Gilbert's reaction - follow up with pcp No further n/v, tolerating po (2) Atypical chest pain: Appears to be musculoskeletal/costochondritis Patient complaining of epigastric pain radiating to her left and right chest - tender to palpation Troponins negative x2 EKG normal sinus rhythm Treat with Tylenol and lidoderm patches, avoid NSAIDs as below Could consider PT if not improving (3) H/O unilateral nephrectomy: Patient had left unilateral nephrectomy when she was a 6 grader due to sliding accident and injury. No issues at this time. Avoid nephrotoxins where possible (4) History of kidney stones: Patient reports having kidney stones in the past. Urine analysis is pending. (5) Lower extremity edema: Chronic per patient, no pain in her legs, no erythema - continue furosemide Total Time Total Time Spent Total Time Spent (In Minutes): greater than 30 minutes Discharge Plan Discharge Items Patient Disposition: Home - Self-Care Reason For Visit: EPIGASTRIC PAIN Discharge Diagnosis: Musculoskeletal pain Activity: Resume your previous activity Non-emergency contact: Primary Care Provider Call non-emergency contact if: you have any medication questions Follow-up/Referrals: Rea Rain, [Primary Care Provider] - 06/20/19 1:20 pm (A follow-up appointment has been made on your behalf with your PCP. Please call the office with any questions or concerns. ) Diet: Regular Addtl Attending Provider Instructions: Your chest pain appears to be musculoskeletal in nature. You can use Tylenol, 1g (1000 mg) every 8 hours for pain and lidoderm patches over your chest. It will take some time for the pain and inflammation to resolve. You should avoid NSAIDs such as ibuprofen and Aleve. Please follow up with your primary care provider within about a week Pending Studies at Discharge: No Stand-Alone Forms: [employer], Smoking Cessation Medications and DC Order Prescriptions: Continued ascorbic acid (vitamin C) [Vitamin C] 250 mg Tablet 250 mg PO QAM RF: 0 goldenseal 325 mg Capsule 325 mg PO BID PRN (Reason: prevent colds) RF: 0 furosemide [Lasix] 20 mg tablet 20 mg PO QAM PRN (Reason: swelling) RF: 0 Discharge Orders: Discharge Order (Routine); Ordered 06/13/19 Ordered By: Erica Richardson Admission Data Admit Date/Time: 06/12/19 11:00 Attending Provider: Nahid Fernando Admit Provider: Roya Thomas Primary Care Provider: Rea Rain Other Providers: David Shane ; Lopez Salas ; Nahid Fernando
--- NOTE | 2019-06-14 16:37 | History & Physical Bridge Note ---
Date of Service June 14, 2019 History & Physical Bridge Note Spoke with Ms. Stern on the phone this afternoon. She is quite upset about the fact that her discharge paperwork does not give recommendations about her gallbladder. I did spend some time discussing with her that after considerable work-up, Dr. Shane felt was more musculoskeletal in nature rather than gallbladder. She said she had gone to her chiropractor today to get further relief as her pain had returned this morning and she would not return to our hospital. We did discuss conservative gallbladder measures such as low-fat meals. I did discuss that she could follow up with Dr. Shane in the office. I mentioned that I could give his number to her, but she declined. She would like to talk to her PCP next week. She did mention to me at least 3 times that she felt it was inappropriate that her discharge paperwork did not have any recommendations on her gallbladder. I apologized and re-iterated my recommendations on gallbladder diet and the offer of Dr. Shane's office information, but again, she did not really accept these offers. I did tell her I would send a note to her PCP (whom I will CC: on this note), so that she could discuss it. I did apologize that she felt her care was sub-par at [facility].
== END 2019-06-13 18:31 | disposition home or self-care (01) ==
LOC: 2W 08:04 → ED 08:04 → SUATTDRO 11:00 → 2W 13:21